=== PATIENT | female | born 1980 | race Caucasian/White ===

== ENCOUNTER 2017-10-08 13:52 | Emergency (ER) | payer MEDICAID ==
[~2017-10-08] VITALS: Ht 160 cm; Wt 52.0 kg
[~2017-10-08 13:52] MED LIST: CITA20TA11 PO; ELET40TA PO; EST1T PO; IBUP-1986 PO; ONDA4TAB6 PO; ONDA8TAB9 PO; OXYC-145 PO; PROM25TA14 PO; RIZA10TA27 PO; RIZA10TA28 PO; RIZA5TAB34 PO; ZOF4T PO
[2017-10-08 14:37] LABS: CLARITY,URINE Clear (Clear); COLOR,URINE Yellow (Yellow); GLUCOSE, URINE Negative (Neg); KETONES,URINE Negative (Neg); LEUKOCYTE ESTERASE ,URINE Negative (Neg); NITRITES, URINE Negative (Neg); OCCULT BLOOD,URINE Negative (Neg); PROTEIN,URINE Negative (Neg)
[2017-10-08 14:39] LABS: UA COLLECTION TYPE CLN CATCH MIDSTREAM
[2017-10-08 14:41] LABS: BASOPHILS % (AUTO) 0.2 % (0-1); EOSINOPHILS # (AUTO) 0.2 X10'3 (0-0.9); EOSINOPHILS % (AUTO) 2.1 % (0-6); HEMATOCRIT 35.3 % (35.0-45.0); HEMOGLOBIN 11.8 g/dl (12.0-16.0); LYMPHOCYTES # (AUTO) 1.4 X10'3 (1.1-4.8); LYMPHOCYTES % (AUTO) 12.3 % (21-51); MEAN CORPUSCULAR HEMOGLOBIN 30.6 PG (27.0-31.0); MEAN CORPUSCULAR HGB CONC 33.4 % (33.0-36.5); MEAN CORPUSCULAR VOLUME 91.6 FL (78-98); MEAN PLATELET VOLUME 6.7 FL (7.4-10.4); MONOCYTES # (AUTO) 0.7 X10'3 (0-0.9); MONOCYTES % (AUTO) 6.2 % (2-12); NEUTROPHILS # (AUTO) 8.8 X10'3 (1.8-7.7); NEUTROPHILS % (AUTO) 79.2 % (42-75); PLATELET COUNT 311 X10'3 (140-440); RED BLOOD COUNT 3.86 X10'6 (4.20-5.60); RED CELL DISTRIBUTION WIDTH 14.1 % (11.5-14.5); WHITE BLOOD COUNT 11.1 X10'3 (4.5-11.0)
[2017-10-08 15:06] LABS: ALANINE AMINOTRANSFERASE 26 U/L (12-78); ALBUMIN 3.7 G/DL (3.4-5.0); ALBUMIN/GLOBULIN RATIO 0.9 (1.1-1.5); ALKALINE PHOSPHATASE 74 IU/L (46-116); ANION GAP 6 (8-16); ASPARTATE AMINO TRANSFERASE 19 U/L (10-37); BILIRUBIN,TOTAL 0.4 MG/DL (0.1-1.0); BLOOD UREA NITROGEN 7 MG/DL (7-18); CHLORIDE 103 MMOL/L (99-107); GLUCOSE 101 MG/DL (70-104); LIPASE 119 U/L (73-393); POTASSIUM 3.5 MMOL/L (3.5-5.1); SODIUM 137 MMOL/L (135-145); TOTAL CARBON DIOXIDE 28.5 MMOL/L (24-32); TOTAL PROTEIN 7.6 G/DL (6.4-8.2); eGFR > 90 ML/MIN
[2017-10-08] MEDS ORDERED: dexamethasone sod phosphate 10mg/ml inj IV STA (15:21)
[2017-10-08] MEDS ORDERED: ondansetron/PF 4mg/2ml inj IV ONE (15:25)
[2017-10-08] MEDS ORDERED: ketorolac tromethamine 15mg/ml inj. IV ONE (15:25)
[2017-10-08] MEDS ORDERED: normal saline 1000ML IV soln IVB ONE (15:25)
[2017-10-08] MEDS ORDERED: CEPH-572 PO (15:25)
[2017-10-08] MEDS ORDERED: KETO10TA2 PO (15:38)
[2017-10-08 16:30] VITALS: BP 115/78
== END 2017-10-08 16:31 | disposition home or self-care (01) ==
LOC: ER 13:53
DX: G43.909 Migraine, unspecified, not intractable, without status migrainosus (principal); J45.909 Unspecified asthma, uncomplicated; G89.29 Other chronic pain; Z90.710 Acquired absence of both cervix and uterus; H66.92 Otitis media, unspecified, left ear; J02.9 Acute pharyngitis, unspecified; R10.84 Generalized abdominal pain; Z88.2 Allergy status to sulfonamides; Z88.0 Allergy status to penicillin; Z88.1 Allergy status to other antibiotic agents; Z91.040 Latex allergy status; Z88.6 Allergy status to analgesic agent; Z79.899 Other long term (current) drug therapy
CPT/HCPCS: 36415; 80053; 81003; 83690; 85025; 85610; 96361; 96374; 96375; 99284; J1100; J1885; J2405; J7030

== ENCOUNTER 2018-02-12 21:30 | Emergency (ER) | payer MEDICAID ==
[~2018-02-12] VITALS: Ht 160 cm; Wt 58.2 kg
[~2018-02-12 21:30] MED LIST changes: +CITA-278 PO; -CITA20TA11 PO; +KETO10TA2 PO
[2018-02-12] MEDS ORDERED: diphenhydrAMINE 50 mg/ml inj IV ONE (23:15)
[2018-02-12] MEDS ORDERED: metoclopramide 5 mg/ml inj IV ONE (23:15)
[2018-02-12] MEDS ORDERED: SUMAtriptan succ. 6 MG/0.5ml vial SQ ONE (23:15)
[2018-02-12] MEDS ORDERED: ketorolac trometh. 30mg/ml inj. IV ONE (23:15)
[2018-02-13] MEDS ORDERED: normal saline 1000ml 1,000 ML IV ONE (00:15)
[2018-02-13 01:12] VITALS: BP 127/85
== END 2018-02-13 01:13 | disposition home or self-care (01) ==
LOC: ER 21:31
DX: G43.909 Migraine, unspecified, not intractable, without status migrainosus (principal); J45.909 Unspecified asthma, uncomplicated; G89.29 Other chronic pain; Z86.14 Personal history of Methicillin resistant Staphylococcus aureus infection; Z88.5 Allergy status to narcotic agent; Z88.0 Allergy status to penicillin; Z88.8 Allergy status to other drugs, medicaments and biological substances; Z91.040 Latex allergy status; Z88.1 Allergy status to other antibiotic agents; Z88.2 Allergy status to sulfonamides; Z79.899 Other long term (current) drug therapy; Z90.710 Acquired absence of both cervix and uterus; Z98.890 Other specified postprocedural states
CPT/HCPCS: 96372; 96374; 96375; 99284; J1200; J1885; J2765; J3030; J7030

== ENCOUNTER 2018-02-15 16:56 | Emergency (ER) | payer MEDICAID ==
[~2018-02-15] VITALS: Ht 160 cm; Wt 59.0 kg
[2018-02-15 18:12] VITALS: BP 117/70
[2018-02-15] MEDS ORDERED: dexamethasone sod phosphate 10mg/ml inj IV STA (18:31)
[2018-02-15] MEDS ORDERED: LORazepam 2 mg/ml vial IV ONE (18:35)
[2018-02-15] MEDS ORDERED: ondansetron/PF 4mg/2ml inj IV ONE (18:35)
[2018-02-15] MEDS ORDERED: ketorolac trometh. 30mg/ml inj. IV ONE (19:20)
[2018-02-15] MEDS ORDERED: SUMAtriptan succ. 6 MG/0.5ml vial SQ ONE (19:20)
== END 2018-02-15 19:37 | disposition home or self-care (01) ==
LOC: ER 16:57
DX: G43.909 Migraine, unspecified, not intractable, without status migrainosus (principal); J45.909 Unspecified asthma, uncomplicated; G89.29 Other chronic pain; Z86.14 Personal history of Methicillin resistant Staphylococcus aureus infection; Z90.710 Acquired absence of both cervix and uterus; Z98.890 Other specified postprocedural states; Z88.0 Allergy status to penicillin; Z88.2 Allergy status to sulfonamides; Z88.5 Allergy status to narcotic agent; Z79.899 Other long term (current) drug therapy; Z91.040 Latex allergy status
CPT/HCPCS: 96372; 96374; 96375; 99284; J1100; J1885; J2060; J2405; J3030

== ENCOUNTER 2018-03-08 08:22 | Emergency (ER) | payer MEDICAID ==
[~2018-03-08] VITALS: Ht 160 cm; Wt 54.5 kg
[2018-03-08 08:31] VITALS: BP 104/75
[2018-03-08] MEDS ORDERED: diazepam 5mg tablet PO ONE (08:35)
[2018-03-08] MEDS ORDERED: ondansetron/PF 4mg/2ml inj IV ONE (08:35)
[2018-03-08] MEDS ORDERED: diphenhydrAMINE 50 mg/ml inj IV ONE (08:35)
[2018-03-08] MEDS ORDERED: ketorolac trometh. 30mg/ml inj. IV ONE (08:35)
[2018-03-08] MEDS ORDERED: LORazepam 2 mg/ml vial IV ONE (08:40)
[2018-03-08] MEDS ORDERED: ondansetron 4mg rapidly disintigrating tab PO ONE (09:15)
[2018-03-08 10:05] LABS: CLARITY,URINE CLOUDY (Clear); COLOR,URINE YELLOW (Yellow); GLUCOSE, URINE NEGATIVE (Neg); KETONES,URINE 15 mg/dl (Neg); LEUKOCYTE ESTERASE ,URINE NEGATIVE (Neg); NITRITES, URINE NEGATIVE (Neg); OCCULT BLOOD,URINE NEGATIVE (Neg); PH,URINE 6.5 (4.8-8.0); PROTEIN,URINE 30 mg/dl (Neg)
[2018-03-08 10:06] LABS: UA COLLECTION TYPE CLN CATCH MIDSTREAM
[2018-03-08 10:07] LABS: URINE HCG NEGATIVE (NEG)
[2018-03-08 10:11] LABS: CAL OXALATE CRYSTALS 1+ /HPF (NEGATIVE); MUCUS STRANDS MANY /LPF (Neg); SQUAMOUS EPITHELIAL CELL,UR MANY /LPF (FEW)
[2018-03-08 10:12] LABS: BACTERIA,URINE 1+ /HPF (Neg); RBC,URINE 0-2 /HPF (0-2); WBC,URINE 0-4 /HPF (0-4)
== END 2018-03-08 09:43 | disposition home or self-care (01) ==
LOC: ER 08:22
DX: G43.909 Migraine, unspecified, not intractable, without status migrainosus (principal); R10.30 Lower abdominal pain, unspecified; J45.909 Unspecified asthma, uncomplicated; G89.29 Other chronic pain; Z86.14 Personal history of Methicillin resistant Staphylococcus aureus infection; Z90.710 Acquired absence of both cervix and uterus; Z98.890 Other specified postprocedural states; Z88.5 Allergy status to narcotic agent; Z88.0 Allergy status to penicillin; Z88.1 Allergy status to other antibiotic agents; Z91.040 Latex allergy status; Z88.2 Allergy status to sulfonamides; Z88.8 Allergy status to other drugs, medicaments and biological substances; Z79.899 Other long term (current) drug therapy
CPT/HCPCS: 81001; 81025; 96374; 96375; 99284; A6258; J1200; J1885; J2060

== ENCOUNTER 2018-06-17 18:43 | Emergency (ER) | payer MEDICAID ==
[~2018-06-17] VITALS: Ht 160 cm; Wt 54.5 kg
[2018-06-17] MEDS ORDERED: ketorolac trometh. 30mg/ml inj. IV ONE (20:45)
[2018-06-17] MEDS ORDERED: diphenhydrAMINE 50 mg/ml inj IV ONE (20:45)
[2018-06-17] MEDS ORDERED: ondansetron/PF 4mg/2ml inj IV ONE (20:45)
[2018-06-17] MEDS ORDERED: diazepam 5mg tablet PO ONE (20:45)
[2018-06-17] MEDS ORDERED: LORazepam 2 mg/ml vial IV ONE ×2 (21:40→22:10)
[2018-06-17] MEDS ORDERED: valproate sod inj 500 MG in normal saline 100ml IV soln 95 ML IV ONE (22:10)
[2018-06-18 00:14] VITALS: BP 115/53
== END 2018-06-18 00:15 | disposition home or self-care (01) ==
LOC: ER 18:44
DX: G43.909 Migraine, unspecified, not intractable, without status migrainosus (principal); J45.909 Unspecified asthma, uncomplicated; G89.29 Other chronic pain; Z90.710 Acquired absence of both cervix and uterus; Z98.890 Other specified postprocedural states; Z88.3 Allergy status to other anti-infective agents; Z91.040 Latex allergy status; Z88.0 Allergy status to penicillin; Z88.2 Allergy status to sulfonamides; Z88.1 Allergy status to other antibiotic agents; Z88.5 Allergy status to narcotic agent; Z79.899 Other long term (current) drug therapy
CPT/HCPCS: 96365; 96375; 96376; 99284; J1200; J1885; J2060; J2405; J7030

== ENCOUNTER 2018-08-28 13:45 | Emergency (ER) | payer MEDICAID ==
[~2018-08-28] VITALS: Ht 160 cm; Wt 53.6 kg
[2018-08-28 13:52] VITALS: BP 134/91
[2018-08-28] MEDS ORDERED: CEPH500C5 PO (14:11)
[2018-08-28] MEDS ORDERED: TRAM50TA2 PO (14:11)
[2018-08-28] MEDS ORDERED: PHEN-716 PO (14:11)
[2018-08-28 14:14] LABS: CLARITY,URINE CLEAR (Clear); GLUCOSE, URINE NEGATIVE (Neg); KETONES,URINE NEGATIVE (Neg); LEUKOCYTE ESTERASE ,URINE MODERATE (Neg); NITRITES, URINE NEGATIVE (Neg); OCCULT BLOOD,URINE LARGE (Neg); PH,URINE 6.5 (4.8-8.0); PROTEIN,URINE NEGATIVE (Neg); UROBILINOGEN,URINE 0.2 E.U/dL (0.2-1.0)
[2018-08-28 14:24] LABS: COLOR,URINE PINK (Yellow); UA COLLECTION TYPE CLN CATCH MIDSTREAM
[2018-08-28 14:25] LABS: BACTERIA,URINE NONE SEEN /HPF (Neg); MUCUS STRANDS NONE SEEN /LPF (Neg); SQUAMOUS EPITHELIAL CELL,UR NONE SEEN /LPF (FEW)
[2018-08-28] MEDS ORDERED: ketorolac trometh inj. 60 MG/2 ML VIAL IM ONE (14:45)
== END 2018-08-28 14:56 | disposition home or self-care (01) ==
LOC: ER 13:46
DX: N39.0 Urinary tract infection, site not specified (principal); G43.909 Migraine, unspecified, not intractable, without status migrainosus; J45.909 Unspecified asthma, uncomplicated; G89.29 Other chronic pain; Z86.14 Personal history of Methicillin resistant Staphylococcus aureus infection; Z90.710 Acquired absence of both cervix and uterus; Z98.890 Other specified postprocedural states; Z88.1 Allergy status to other antibiotic agents; Z88.0 Allergy status to penicillin; Z91.040 Latex allergy status; Z88.2 Allergy status to sulfonamides; Z88.5 Allergy status to narcotic agent; Z88.8 Allergy status to other drugs, medicaments and biological substances; Z79.899 Other long term (current) drug therapy
CPT/HCPCS: 81001; 87088; 96372; 99283; J1885

== ENCOUNTER 2018-10-03 21:02 | Emergency (ER) | payer MEDICAID ==
[~2018-10-03] VITALS: Ht 160 cm; Wt 48.1 kg
[~2018-10-03 21:02] MED LIST changes: +CEPH500C5 PO; +PHEN-716 PO
[2018-10-03] MEDS ORDERED: LORazepam 2 mg/ml vial IV ONE (21:30)
[2018-10-03] MEDS ORDERED: ketorolac trometh. 30mg/ml inj. IV ONE ×2 (21:30→22:15)
[2018-10-03] MEDS ORDERED: ondansetron/PF 4mg/2ml inj IV ONE (21:30)
[2018-10-03] MEDS ORDERED: dexamethasone 4mg/ml inj IV SCH (21:30)
[2018-10-03] MEDS ORDERED: diphenhydrAMINE 50 mg/ml inj IV ONE (21:30)
[2018-10-03 22:23] VITALS: BP 108/76
== END 2018-10-03 22:25 | disposition home or self-care (01) ==
LOC: ER 21:03
DX: G43.909 Migraine, unspecified, not intractable, without status migrainosus (principal); J45.909 Unspecified asthma, uncomplicated; G89.29 Other chronic pain; Z86.14 Personal history of Methicillin resistant Staphylococcus aureus infection; Z90.710 Acquired absence of both cervix and uterus; Z98.890 Other specified postprocedural states; Z88.0 Allergy status to penicillin; Z88.1 Allergy status to other antibiotic agents; Z88.2 Allergy status to sulfonamides; Z88.8 Allergy status to other drugs, medicaments and biological substances; Z79.899 Other long term (current) drug therapy
CPT/HCPCS: 96374; 96375; 96376; 99283; J1100; J1200; J1885; J2060; J2405

== ENCOUNTER 2018-10-10 13:36 | Emergency (ER) | payer MEDICAID ==
[~2018-10-10] VITALS: Ht 160 cm; Wt 52.4 kg
[2018-10-10] MEDS ORDERED: dexamethasone sod phosphate 10mg/ml inj IM STA (14:09)
[2018-10-10] MEDS ORDERED: ondansetron 4mg rapidly disintigrating tab PO ONE (14:10)
[2018-10-10] MEDS ORDERED: diphenhydrAMINE 50 mg/ml inj IM ONE (14:10)
[2018-10-10 15:04] VITALS: BP 132/52
[2018-10-10] MEDS ORDERED: LORazepam 1 MG tablet PO ONE (15:05)
[2018-10-10] MEDS ORDERED: SUMAtriptan succ. 6 MG/0.5ml vial SQ ONE (15:05)
[2018-10-10] MEDS ORDERED: LORazepam 0.5 MG tablet PO ONE (15:15)
== END 2018-10-10 15:31 | disposition home or self-care (01) ==
LOC: ER 13:36
DX: G43.909 Migraine, unspecified, not intractable, without status migrainosus (principal); H53.149 Visual discomfort, unspecified; J45.909 Unspecified asthma, uncomplicated; G89.29 Other chronic pain; Z90.710 Acquired absence of both cervix and uterus; Z98.890 Other specified postprocedural states; Z88.3 Allergy status to other anti-infective agents; Z91.040 Latex allergy status; Z88.1 Allergy status to other antibiotic agents; Z88.5 Allergy status to narcotic agent; Z79.899 Other long term (current) drug therapy
CPT/HCPCS: 96372; 99283; J1100; J1200; J3030

== ENCOUNTER 2018-10-19 20:43 | Emergency (ER) | payer MEDICAID ==
[~2018-10-19] VITALS: Ht 160 cm; Wt 52.0 kg
[2018-10-19 20:53] VITALS: BP 115/77
[2018-10-19] MEDS ORDERED: normal saline 1000ml 1,000 ML IV ONE (21:25)
[2018-10-19] MEDS ORDERED: metoclopramide 5 mg/ml inj IV ONE (21:25)
[2018-10-19] MEDS ORDERED: diphenhydrAMINE 50 mg/ml inj IV ONE (21:25)
[2018-10-19] MEDS ORDERED: ketorolac tromethamine 15mg/ml inj. IV ONE (21:25)
[2018-10-19] MEDS ORDERED: RIZA10TA27 PO (21:34)
[2018-10-19] MEDS ORDERED: SUMA6PEN SQ (21:34)
[2018-10-19] MEDS ORDERED: ONDA4TAB6 PO (21:34)
== END 2018-10-19 22:02 | disposition home or self-care (01) ==
LOC: ER 20:44
DX: G43.909 Migraine, unspecified, not intractable, without status migrainosus (principal); J45.909 Unspecified asthma, uncomplicated; G89.29 Other chronic pain; Z86.14 Personal history of Methicillin resistant Staphylococcus aureus infection; Z90.710 Acquired absence of both cervix and uterus; Z98.890 Other specified postprocedural states; Z88.5 Allergy status to narcotic agent; Z88.0 Allergy status to penicillin; Z88.2 Allergy status to sulfonamides; Z88.8 Allergy status to other drugs, medicaments and biological substances; Z88.1 Allergy status to other antibiotic agents; Z91.040 Latex allergy status; Z79.899 Other long term (current) drug therapy
CPT/HCPCS: 96374; 96375; 99283; J1200; J1885; J2765; J7030

== ENCOUNTER → 2018-10-27 | Emergency (ER) | payer MEDICAID ==
[~2018-10-27] VITALS: Ht 160 cm; Wt 46.0 kg
[~2018-10-27] MED LIST changes: +PHE12.5T PO; +SUMA6PEN SQ; +ketorolac trometh. 30mg/ml inj. IV ONE; +ondansetron/PF 4mg/2ml inj IV ONE
[2018-10-27 19:00] LABS: BASOPHILS % (AUTO) 0.3 % (0-1); EOSINOPHILS % (AUTO) 0.8 % (0-6); HEMATOCRIT 43.2 % (35.0-45.0); HEMOGLOBIN 14.6 g/dl (12.0-16.0); LYMPHOCYTES # (AUTO) 0.7 X10'3 (1.1-4.8); LYMPHOCYTES % (AUTO) 17.7 % (21-51); MEAN CORPUSCULAR HEMOGLOBIN 31.5 PG (27.0-31.0); MEAN CORPUSCULAR HGB CONC 33.8 g/dL (33.0-36.5); MEAN CORPUSCULAR VOLUME 93.1 FL (78-98); MEAN PLATELET VOLUME 7.6 FL (7.4-10.4); MONOCYTES # (AUTO) 0.4 X10'3 (0-0.9); MONOCYTES % (AUTO) 10.6 % (2-12); NEUTROPHILS # (AUTO) 2.8 X10'3 (1.8-7.7); NEUTROPHILS % (AUTO) 70.6 % (42-75); PLATELET COUNT 279 X10'3 (140-440); RED BLOOD COUNT 4.64 X10'6 (4.20-5.60); RED CELL DISTRIBUTION WIDTH 14.3 % (11.5-14.5)
[2018-10-27 19:08] LABS: CLARITY,URINE CLEAR (Clear); COLOR,URINE YELLOW (Yellow); GLUCOSE, URINE NEGATIVE (Neg); KETONES,URINE NEGATIVE (Neg); LEUKOCYTE ESTERASE ,URINE NEGATIVE (Neg); NITRITES, URINE NEGATIVE (Neg); OCCULT BLOOD,URINE NEGATIVE (Neg); PH,URINE 5.5 (4.8-8.0); PROTEIN,URINE TRACE mg/dl (Neg)
[2018-10-27 19:11] LABS: URINE HCG NEGATIVE (NEG)
[2018-10-27 19:12] LABS: UA COLLECTION TYPE CLN CATCH MIDSTREAM
[2018-10-27 19:15] LABS: ALANINE AMINOTRANSFERASE 25 U/L (12-78); ALBUMIN 3.9 G/DL (3.4-5.0); ALKALINE PHOSPHATASE 64 IU/L (46-116); ANION GAP 12 (8-16); ASPARTATE AMINO TRANSFERASE 23 U/L (10-37); BILIRUBIN,TOTAL 0.2 MG/DL (0.1-1.0); BLOOD UREA NITROGEN 17 MG/DL (7-18); BUN/CREATININE RATIO 12.6 (6.6-38.0); CALCIUM 8.7 MG/DL (8.5-10.1); CHLORIDE 96 MMOL/L (99-107); CREATININE 1.35 MG/DL (0.40-0.90); GLUCOSE 92 MG/DL (70-104); POTASSIUM 3.6 MMOL/L (3.5-5.1); SODIUM 138 MMOL/L (135-145); TOTAL CARBON DIOXIDE 30.1 MMOL/L (24-32); eGFR 44 ML/MIN
[2018-10-27 19:26] LABS: MUCUS STRANDS MANY /LPF (Neg); SQUAMOUS EPITHELIAL CELL,UR MANY /LPF (FEW)
[2018-10-27 19:27] LABS: BACTERIA,URINE FEW /HPF (Neg); HYALINE CASTS 0-3 /LPF (NEGATIVE); RBC,URINE 0-2 /HPF (0-2); WBC,URINE 0-4 /HPF (0-4)
[2018-10-27 21:17] VITALS: BP 108/66
== END | disposition home or self-care (01) ==
LOC: ER 18:22
DX: E86.0 Dehydration (principal); R11.2 Nausea with vomiting, unspecified; J11.1 Influenza due to unidentified influenza virus with other respiratory manifestations; G43.909 Migraine, unspecified, not intractable, without status migrainosus; J45.909 Unspecified asthma, uncomplicated; G89.29 Other chronic pain; Z98.890 Other specified postprocedural states; Z90.710 Acquired absence of both cervix and uterus; Z86.14 Personal history of Methicillin resistant Staphylococcus aureus infection; Z88.3 Allergy status to other anti-infective agents; Z91.040 Latex allergy status; Z88.0 Allergy status to penicillin; Z88.2 Allergy status to sulfonamides; Z88.1 Allergy status to other antibiotic agents; Z88.5 Allergy status to narcotic agent
CPT/HCPCS: 36415; 71045; 80053; 81001; 81025; 85025; 85610; 96374; 96375; 99284; J1885; J2405

== ENCOUNTER 2018-11-15 19:38 | Emergency (ER) | payer MEDICAID ==
[~2018-11-15] VITALS: Ht 160 cm; Wt 45.5 kg
[~2018-11-15 19:38] MED LIST changes: -ketorolac trometh. 30mg/ml inj. IV ONE; -ondansetron/PF 4mg/2ml inj IV ONE
[2018-11-15 20:24] LABS: BASOPHILS # (AUTO) 0.1 X10'3 (0-0.2); BASOPHILS % (AUTO) 0.7 % (0-1); EOSINOPHILS % (AUTO) 0.2 % (0-6); HEMATOCRIT 35.3 % (35.0-45.0); HEMOGLOBIN 11.6 g/dl (12.0-16.0); LYMPHOCYTES # (AUTO) 1.6 X10'3 (1.1-4.8); MEAN CORPUSCULAR HEMOGLOBIN 30.6 PG (27.0-31.0); MEAN CORPUSCULAR HGB CONC 32.9 g/dL (33.0-36.5); MEAN PLATELET VOLUME 6.8 FL (7.4-10.4); MONOCYTES # (AUTO) 0.6 X10'3 (0-0.9); MONOCYTES % (AUTO) 5.5 % (2-12); NEUTROPHILS # (AUTO) 9.2 X10'3 (1.8-7.7); NEUTROPHILS % (AUTO) 79.6 % (42-75); PLATELET COUNT 412 X10'3 (140-440); RED CELL DISTRIBUTION WIDTH 14.4 % (11.5-14.5); WHITE BLOOD COUNT 11.6 X10'3 (4.5-11.0)
[2018-11-15 20:36] LABS: ALANINE AMINOTRANSFERASE 14 U/L (12-78); ALBUMIN 3.9 G/DL (3.4-5.0); ALKALINE PHOSPHATASE 74 IU/L (46-116); ANION GAP 12 (8-16); ASPARTATE AMINO TRANSFERASE 15 U/L (10-37); BILIRUBIN,TOTAL 0.6 MG/DL (0.1-1.0); BLOOD UREA NITROGEN 14 MG/DL (7-18); BUN/CREATININE RATIO 17.9 (6.6-38.0); CALCIUM 9.4 MG/DL (8.5-10.1); CHLORIDE 102 MMOL/L (99-107); CREATININE 0.78 MG/DL (0.40-0.90); GLUCOSE 101 MG/DL (70-104); POTASSIUM 3.4 MMOL/L (3.5-5.1); SODIUM 139 MMOL/L (135-145); TOTAL PROTEIN 7.7 G/DL (6.4-8.2); eGFR 82 ML/MIN
--- NOTE | 2018-11-15 21:25 | NUR ---
After speaking with patient, she states the reason for her visit is 1) "to make sure this is still just the flu", and 2) "medication refill" (valium for anxiety as she has run out and has been discharged from her clinic for 'no shows')
[2018-11-15] MEDS ORDERED: predniSONE 20 mg tablet PO ONE (21:35)
[2018-11-15] MEDS ORDERED: diazepam 5mg tablet PO ONE (21:35)
[2018-11-15] MEDS ORDERED: ipratropium/albuterol 3ml nebule NEB ONE (21:35)
--- NOTE | 2018-11-15 21:37 | NUR ---
RT on unit, informed of ordered SVN
[2018-11-15 22:10] VITALS: BP 136/83
[2018-11-15] MEDS ORDERED: METH4TAB3 PO (22:10)
[2018-11-15] MEDS ORDERED: DIAZ5TAB PO (22:10)
[2018-11-15] MEDS ORDERED: LEVA15HF4 INH (22:16)
== END 2018-11-15 22:20 | disposition home or self-care (01) ==
LOC: ER 19:38
DX: J04.0 Acute laryngitis (principal); J06.9 Acute upper respiratory infection, unspecified; J45.909 Unspecified asthma, uncomplicated; G43.909 Migraine, unspecified, not intractable, without status migrainosus; F41.9 Anxiety disorder, unspecified; Z90.710 Acquired absence of both cervix and uterus; Z98.890 Other specified postprocedural states; Z88.0 Allergy status to penicillin; Z88.1 Allergy status to other antibiotic agents; Z88.8 Allergy status to other drugs, medicaments and biological substances
CPT/HCPCS: 36415; 71046; 80053; 85025; 87502; 87503; 93005; 94640; 94760; 99284; J7512

== ENCOUNTER → 2019-01-16 | Emergency (ER) | payer MEDICAID ==
[~2019-01-16] VITALS: Ht 160 cm; Wt 54.8 kg
[~2019-01-16] MED LIST changes: +CETI10TA18 PO; -CITA-278 PO; +CITA20TA28 PO; +DIAZ5TAB PO; +LEVA15HF4 INH; +LIDOcaine 4% (40 mg/ml) topical solution 50ml MM ONE; +LORazepam 2 mg/ml vial IV ONE; +METH4TAB3 PO; +SUMAtriptan succ. 6 MG/0.5ml vial SQ ONE; +diphenhydrAMINE 50 mg/ml inj IV ONE; +ketorolac tromethamine 15mg/ml inj. IV ONE; +lidocaine 2% viscous 15 ML cup ***bronch room only MM ONE; +normal saline 1000ML IV soln IVB ONE; +ondansetron/PF 4mg/2ml inj IV ONE
[2019-01-16 19:53] VITALS: BP 106/67
== END | disposition home or self-care (01) ==
LOC: ER 19:35
DX: G43.909 Migraine, unspecified, not intractable, without status migrainosus (principal); R06.02 Shortness of breath; J45.909 Unspecified asthma, uncomplicated; G89.29 Other chronic pain; Z86.14 Personal history of Methicillin resistant Staphylococcus aureus infection; Z90.710 Acquired absence of both cervix and uterus; Z98.890 Other specified postprocedural states; Z88.1 Allergy status to other antibiotic agents; Z88.0 Allergy status to penicillin; Z88.2 Allergy status to sulfonamides; Z88.5 Allergy status to narcotic agent; Z91.040 Latex allergy status; Z88.8 Allergy status to other drugs, medicaments and biological substances; Z79.899 Other long term (current) drug therapy
CPT/HCPCS: 96372; 96374; 96375; 96376; 99283; J1200; J1885; J2060; J2405; J7030; J3030

== ENCOUNTER 2019-01-17 21:06 | Emergency (ER) | payer MEDICAID ==
[~2019-01-17] VITALS: Ht 160 cm; Wt 53.1 kg
[~2019-01-17 21:06] MED LIST changes: -CETI10TA18 PO; -LIDOcaine 4% (40 mg/ml) topical solution 50ml MM ONE; -LORazepam 2 mg/ml vial IV ONE; -SUMAtriptan succ. 6 MG/0.5ml vial SQ ONE; -diphenhydrAMINE 50 mg/ml inj IV ONE; -ketorolac tromethamine 15mg/ml inj. IV ONE; -lidocaine 2% viscous 15 ML cup ***bronch room only MM ONE; -normal saline 1000ML IV soln IVB ONE; -ondansetron/PF 4mg/2ml inj IV ONE
[2019-01-18] MEDS ORDERED: SUMAtriptan succ. 6 MG/0.5ml vial SQ ONE (00:20)
[2019-01-18] MEDS ORDERED: LORazepam 2 mg/ml vial IV ONE (00:20)
[2019-01-18] MEDS ORDERED: ondansetron 4mg rapidly disintigrating tab PO ONE (00:20)
[2019-01-18] MEDS ORDERED: ketorolac tromethamine 15mg/ml inj. IV ONE (00:20)
[2019-01-18] MEDS ORDERED: normal saline 1000ML IV soln IVB ONE (00:20)
[2019-01-18 00:56] VITALS: BP 125/80
[2019-01-18] MEDS ORDERED: CETI10TA18 PO (02:25)
[2019-01-18] MEDS ORDERED: LEVA15HF4 INH (02:25)
== END 2019-01-18 03:01 | disposition home or self-care (01) ==
LOC: ER 21:06
DX: G43.909 Migraine, unspecified, not intractable, without status migrainosus (principal); J45.909 Unspecified asthma, uncomplicated; G89.29 Other chronic pain; Z79.2 Long term (current) use of antibiotics; Z79.1 Long term (current) use of non-steroidal anti-inflammatories (NSAID); Z79.899 Other long term (current) drug therapy; Z88.0 Allergy status to penicillin; Z88.1 Allergy status to other antibiotic agents; Z88.8 Allergy status to other drugs, medicaments and biological substances; Z88.6 Allergy status to analgesic agent; Z86.14 Personal history of Methicillin resistant Staphylococcus aureus infection; Z87.440 Personal history of urinary (tract) infections; Z91.040 Latex allergy status; Z98.890 Other specified postprocedural states; Z90.710 Acquired absence of both cervix and uterus
CPT/HCPCS: 96372; 96374; 96375; 99283; J1885; J2060; J7030; J3030

== ENCOUNTER 2019-03-15 22:38 | Emergency (ER) | payer MEDICAID ==
[~2019-03-15] VITALS: Ht 160 cm; Wt 5.3 kg
[~2019-03-15 22:38] MED LIST changes: +CETI10TA18 PO; -PHE12.5T PO; +PROM12.512 PO
[2019-03-15 22:39] VITALS: BP 106/70
[2019-03-15 23:40] LABS: URINE HCG NEGATIVE (NEG)
[2019-03-15 23:41] LABS: CLARITY,URINE CLOUDY (Clear); COLOR,URINE YELLOW (Yellow); GLUCOSE, URINE NEGATIVE (Neg); KETONES,URINE TRACE mg/dl (Neg); LEUKOCYTE ESTERASE ,URINE TRACE (Neg); NITRITES, URINE POSITIVE (Neg); OCCULT BLOOD,URINE NEGATIVE (Neg); PH,URINE 5.5 (4.8-8.0); PROTEIN,URINE TRACE mg/dl (Neg)
[2019-03-15 23:42] LABS: UA COLLECTION TYPE CLN CATCH MIDSTREAM
[2019-03-15 23:50] LABS: BACTERIA,URINE 3+ /HPF (Neg); RBC,URINE NONE SEEN /HPF (0-2); WBC,URINE 20-30 /HPF (0-4)
[2019-03-15 23:51] LABS: MUCUS STRANDS MODERATE /LPF (Neg); SQUAMOUS EPITHELIAL CELL,UR MODERATE /LPF (FEW)
[2019-03-15] MEDS ORDERED: PHEN-716 PO (23:54)
[2019-03-15] MEDS ORDERED: CIPR-259 PO (23:54)
[2019-03-15] MEDS ORDERED: phenazopyridine 100mg tablet PO ONE (23:55)
[2019-03-15] MEDS ORDERED: ciprofloxacin 250mg tablet PO ONE (23:55)
== END 2019-03-16 00:20 | disposition home or self-care (01) ==
LOC: ER 22:38
DX: N39.0 Urinary tract infection, site not specified (principal); G43.909 Migraine, unspecified, not intractable, without status migrainosus; J45.909 Unspecified asthma, uncomplicated; G89.29 Other chronic pain; Z88.0 Allergy status to penicillin; Z88.2 Allergy status to sulfonamides; Z88.5 Allergy status to narcotic agent; Z88.6 Allergy status to analgesic agent; Z88.8 Allergy status to other drugs, medicaments and biological substances; Z79.2 Long term (current) use of antibiotics; Z79.899 Other long term (current) drug therapy; Z86.14 Personal history of Methicillin resistant Staphylococcus aureus infection; Z90.710 Acquired absence of both cervix and uterus; Z98.890 Other specified postprocedural states
CPT/HCPCS: 81001; 81025; 87088; 87186; 99283

== ENCOUNTER 2019-04-03 17:40 | Emergency (ER) | payer MEDICAID ==
[~2019-04-03] VITALS: Ht 160 cm; Wt 50.0 kg
[2019-04-03 18:17] VITALS: BP 103/67
[2019-04-03] MEDS ORDERED: ketorolac tromethamine 15mg/ml inj. IM ONE (20:05)
== END 2019-04-03 20:20 | disposition home or self-care (01) ==
LOC: ER 17:41
DX: M25.531 Pain in right wrist (principal); M54.10 Radiculopathy, site unspecified; G43.909 Migraine, unspecified, not intractable, without status migrainosus; J45.909 Unspecified asthma, uncomplicated; G89.29 Other chronic pain; Z86.14 Personal history of Methicillin resistant Staphylococcus aureus infection; Z90.710 Acquired absence of both cervix and uterus; Z98.890 Other specified postprocedural states; Z88.5 Allergy status to narcotic agent; Z88.2 Allergy status to sulfonamides; Z88.8 Allergy status to other drugs, medicaments and biological substances; Z88.1 Allergy status to other antibiotic agents; Z91.040 Latex allergy status; Z79.899 Other long term (current) drug therapy
CPT/HCPCS: 29125; 73110; 96372; 99283; J1885

== ENCOUNTER 2019-04-26 21:07 | Emergency (ER) | payer MEDICAID ==
[~2019-04-26] VITALS: Ht 160 cm; Wt 51.0 kg
[2019-04-26 21:15] VITALS: BP 112/73
[2019-04-26] MEDS ORDERED: normal saline 1000ml 1,000 ML IV ONE (21:45)
[2019-04-26] MEDS ORDERED: diphenhydrAMINE 50 mg/ml inj IV ONE (21:45)
[2019-04-26] MEDS ORDERED: diazepam inj 5 MG/ML inj. IV ONE (21:45)
[2019-04-26] MEDS ORDERED: ketorolac tromethamine 15mg/ml inj. IV ONE (21:45)
[2019-04-26] MEDS ORDERED: metoclopramide 5 mg/ml inj IV ONE (21:45)
== END 2019-04-26 23:10 | disposition home or self-care (01) ==
LOC: ER 21:08
DX: G43.909 Migraine, unspecified, not intractable, without status migrainosus (principal); J45.909 Unspecified asthma, uncomplicated; G89.29 Other chronic pain; Z86.14 Personal history of Methicillin resistant Staphylococcus aureus infection; Z90.710 Acquired absence of both cervix and uterus; Z98.890 Other specified postprocedural states; Z88.8 Allergy status to other drugs, medicaments and biological substances; Z91.040 Latex allergy status; Z88.0 Allergy status to penicillin; Z88.2 Allergy status to sulfonamides; Z88.1 Allergy status to other antibiotic agents; Z88.5 Allergy status to narcotic agent; Z79.2 Long term (current) use of antibiotics
CPT/HCPCS: 96374; 96375; 99283; J1200; J1885; J2765; J3360; J7030

== ENCOUNTER 2019-08-13 21:10 | Emergency (ER) | payer MEDICAID ==
[~2019-08-13] VITALS: Ht 160 cm; Wt 52.2 kg
--- NOTE | 2019-08-13 21:30 | NUR ---
Spoke to Dr. Gary regarding patient's condition and symptoms and possibility of EKG. He states EKG not needed at this time.
[2019-08-13] MEDS ORDERED: ondansetron 4mg rapidly disintigrating tab PO ONE (22:10)
[2019-08-13] MEDS ORDERED: ketorolac trometh. 30mg/ml inj. IM ONE (22:10)
[2019-08-13] MEDS ORDERED: meclizine 12.5mg tablet PO ONE (22:10)
[2019-08-13] MEDS ORDERED: MECL-111 PO (22:35)
[2019-08-13 22:44] VITALS: BP 106/73
[2019-08-13] MEDS ORDERED: KETO10TA2 PO (22:49)
== END 2019-08-13 22:51 | disposition home or self-care (01) ==
LOC: ER 21:10
DX: S00.90XA Unspecified superficial injury of unspecified part of head, initial encounter (principal); R42 Dizziness and giddiness; R55 Syncope and collapse; G43.909 Migraine, unspecified, not intractable, without status migrainosus; J45.909 Unspecified asthma, uncomplicated; Z87.440 Personal history of urinary (tract) infections; G89.29 Other chronic pain; Z79.899 Other long term (current) drug therapy; Z91.040 Latex allergy status; Z88.0 Allergy status to penicillin; Z88.1 Allergy status to other antibiotic agents; Z88.6 Allergy status to analgesic agent; Z88.8 Allergy status to other drugs, medicaments and biological substances; Z79.2 Long term (current) use of antibiotics; Z79.1 Long term (current) use of non-steroidal anti-inflammatories (NSAID); Z86.14 Personal history of Methicillin resistant Staphylococcus aureus infection; Z90.710 Acquired absence of both cervix and uterus; Z98.890 Other specified postprocedural states; W18.39XA Other fall on same level, initial encounter; Y93.89 Activity, other specified; Y92.89 Other specified places as the place of occurrence of the external cause; Y99.8 Other external cause status
CPT/HCPCS: 93005; 96372; 99283; J1885; J8597

== ENCOUNTER 2019-10-19 18:23 | Emergency (ER) | payer MEDICAID ==
[~2019-10-19] VITALS: Ht 160 cm; Wt 52.1 kg
[~2019-10-19 18:23] MED LIST changes: -CEPH500C5 PO; +MECL-159 PO
[2019-10-19 19:03] VITALS: BP 110/67
[2019-10-19] MEDS ORDERED: ketorolac tromethamine 15mg/ml inj. IV ONE (21:15)
[2019-10-19] MEDS ORDERED: diphenhydrAMINE 50 mg/ml inj IV ONE (21:15)
[2019-10-19] MEDS ORDERED: metoclopramide 5 mg/ml inj IV ONE (21:15)
[2019-10-19] MEDS ORDERED: diazepam inj 5 MG/ML inj. IV ONE (21:15)
[2019-10-19] MEDS ORDERED: normal saline 1000ml 1,000 ML IV ONE (21:15)
[2019-10-19 21:39] LABS: CLARITY,URINE CLEAR (Clear); COLOR,URINE YELLOW (Yellow); GLUCOSE, URINE NEGATIVE (Neg); KETONES,URINE NEGATIVE (Neg); LEUKOCYTE ESTERASE ,URINE NEGATIVE (Neg); NITRITES, URINE NEGATIVE (Neg); OCCULT BLOOD,URINE NEGATIVE (Neg); PH,URINE 6.5 (4.8-8.0); PROTEIN,URINE NEGATIVE (Neg); UROBILINOGEN,URINE 0.2 E.U/dL (0.2-1.0)
[2019-10-19 22:02] LABS: UA COLLECTION TYPE CLN CATCH MIDSTREAM
== END 2019-10-19 22:24 | disposition home or self-care (01) ==
LOC: ER 18:24
DX: G43.909 Migraine, unspecified, not intractable, without status migrainosus (principal); R11.2 Nausea with vomiting, unspecified; J45.909 Unspecified asthma, uncomplicated; G89.29 Other chronic pain; Z86.14 Personal history of Methicillin resistant Staphylococcus aureus infection; Z90.710 Acquired absence of both cervix and uterus; Z98.890 Other specified postprocedural states; Z88.1 Allergy status to other antibiotic agents; Z88.2 Allergy status to sulfonamides; Z88.0 Allergy status to penicillin; Z91.040 Latex allergy status; Z88.5 Allergy status to narcotic agent; Z88.8 Allergy status to other drugs, medicaments and biological substances; Z79.899 Other long term (current) drug therapy
CPT/HCPCS: 81003; 96361; 96374; 96375; 99283; J1200; J1885; J2765; J3360; J7030

== ENCOUNTER 2019-12-15 10:50 | Outpatient (CLI) | payer MEDICAID ==
[2019-12-15 13:09] LABS: BASOPHILS # (AUTO) 0.1 X10'3 (0-0.2); BASOPHILS % (AUTO) 1.1 % (0-1); EOSINOPHILS # (AUTO) 0.1 X10'3 (0-0.9); EOSINOPHILS % (AUTO) 2.2 % (0-6); LYMPHOCYTES # (AUTO) 1.5 X10'3 (1.1-4.8); LYMPHOCYTES % (AUTO) 23.3 % (21-51); MEAN CORPUSCULAR HEMOGLOBIN 31.3 PG (27.0-31.0); MEAN CORPUSCULAR HGB CONC 33.6 g/dL (33.0-36.5); MEAN PLATELET VOLUME 7.1 FL (7.4-10.4); MONOCYTES # (AUTO) 0.4 X10'3 (0-0.9); MONOCYTES % (AUTO) 5.8 % (2-12); NEUTROPHILS # (AUTO) 4.4 X10'3 (1.8-7.7); NEUTROPHILS % (AUTO) 67.6 % (42-75); PRE OP HEMATOCRIT 35.4 % (35.0-45.0); PRE OP HEMOGLOBIN 11.9 g/dL (12.0-16.0); PRE OP PLATELET COUNT 378 X10'3 (140-440); RED BLOOD COUNT 3.81 X10'6 (4.20-5.60); RED CELL DISTRIBUTION WIDTH 13.2 % (11.5-14.5)
[2019-12-15 13:24] LABS: ALBUMIN 3.8 G/DL (3.4-5.0); ALBUMIN/GLOBULIN RATIO 1.1 (1.1-1.5); ALKALINE PHOSPHATASE 59 IU/L (46-116); BLOOD UREA NITROGEN 13 MG/DL (7-18); BUN/CREATININE RATIO 18.3 (6.6-38.0); CALCIUM 8.9 MG/DL (8.5-10.1); CHLORIDE 106 MMOL/L (99-107); CREATININE 0.71 MG/DL (0.40-0.90); PRE OP ALT 14 U/L (30-65); PRE OP ANION GAP 6 (8-16); PRE OP AST 14 U/L (10-37); PRE OP BILIRUB, TOTAL 0.2 MG/DL (0.0-1.0); PRE OP GLUCOSE 89 MG/DL (70-104); PRE OP POTASSIUM 3.9 MMOL/L (3.4-5.1); PRE OP SODIUM 140 MMOL/L (135-145); TOTAL CARBON DIOXIDE 27.6 MMOL/L (24-32); TOTAL PROTEIN 7.2 G/DL (6.4-8.2); eGFR > 90 ML/MIN
[2019-12-15] MEDS ORDERED: BUSP5TAB3 PO (14:02)
[2019-12-15] MEDS ORDERED: VAL5T PO (14:02)
[2019-12-15] MEDS ORDERED: DEXT30TA10 PO (14:02)
[2019-12-15] MEDS ORDERED: MELO-100 PO (14:02)
[2019-12-15] MEDS ORDERED: LITH150C8 PO (14:02)
[2019-12-15] MEDS ORDERED: TRAM50TA2 PO (14:02)
[2019-12-15] MEDS ORDERED: TIZA2TAB5 PO (14:02)
[2019-12-15] MEDS ORDERED: SUMA50TA INJ (14:02)
[2019-12-15] MEDS ORDERED: RIZA10TA27 PO (14:02)
[2019-12-15] MEDS ORDERED: CETI10TA18 PO (14:02)
[2019-12-15] MEDS ORDERED: AMPH10TA PO (14:02)
[2019-12-15] MEDS ORDERED: MECL-184 PO (14:02)
[2019-12-15] MEDS ORDERED: EST1T PO (14:02)
== END 2019-12-15 23:59 | disposition home or self-care (01) ==
LOC: PRE-OP 10:50 → EDSTATUS 12-22 09:15
PROVIDERS: ATTEND Orthopaedic Surgery Hand Surgery
DX: Z01.818 Encounter for other preprocedural examination (principal); G56.01 Carpal tunnel syndrome, right upper limb; M67.431 Ganglion, right wrist; M79.601 Pain in right arm; M65.4 Radial styloid tenosynovitis [de Quervain]; M25.531 Pain in right wrist; Z88.5 Allergy status to narcotic agent; Z88.0 Allergy status to penicillin; Z88.2 Allergy status to sulfonamides; Z88.8 Allergy status to other drugs, medicaments and biological substances; Z91.040 Latex allergy status
CPT/HCPCS: 36415; 80053; 85025

== ENCOUNTER 2020-02-09 07:13 | Emergency (ER) | payer MEDICAID ==
[~2020-02-09] VITALS: Ht 160 cm; Wt 52.7 kg
[~2020-02-09 07:13] MED LIST changes: +AMPH10TA PO; +BUSP5TAB3 PO; -CITA20TA28 PO; +DEXT30TA10 PO; -DIAZ5TAB PO; -ELET40TA PO; -IBUP-1986 PO; -KETO10TA2 PO; -LEVA15HF4 INH; +LITH150C8 PO; -MECL-159 PO; +MECL-184 PO; +MELO-100 PO; -METH4TAB3 PO; -ONDA4TAB6 PO; -ONDA8TAB9 PO; -OXYC-145 PO; -PHEN-716 PO; -PROM12.512 PO; -PROM25TA14 PO; -RIZA10TA28 PO; -RIZA5TAB34 PO; +SUMA50TA INJ; -SUMA6PEN SQ; +TIZA2TAB7 PO; +TRAM50TA2 PO; +VAL5T PO; -ZOF4T PO
[2020-02-09] MEDS ORDERED: diphenhydrAMINE 50 mg/ml inj IV ONE (08:00)
[2020-02-09] MEDS ORDERED: ondansetron/PF 4mg/2ml inj IV ONE (08:35)
[2020-02-09] MEDS ORDERED: ketorolac trometh. 30mg/ml inj. IV ONE (08:35)
[2020-02-09] MEDS ORDERED: valproate sod inj 500 MG in normal saline 100ml IV soln 95 ML IV ONE (08:35)
[2020-02-09 09:09] VITALS: BP 127/79
== END 2020-02-09 10:24 | disposition home or self-care (01) ==
LOC: ER 07:14
DX: G43.909 Migraine, unspecified, not intractable, without status migrainosus (principal); R11.0 Nausea; J45.909 Unspecified asthma, uncomplicated; G89.29 Other chronic pain; Z86.14 Personal history of Methicillin resistant Staphylococcus aureus infection; Z90.710 Acquired absence of both cervix and uterus; Z98.890 Other specified postprocedural states; Z88.1 Allergy status to other antibiotic agents; Z88.0 Allergy status to penicillin; Z88.2 Allergy status to sulfonamides; Z88.5 Allergy status to narcotic agent; Z88.8 Allergy status to other drugs, medicaments and biological substances; Z79.899 Other long term (current) drug therapy
CPT/HCPCS: 96365; 96375; 99284; J1200; J1885; J2405

== ENCOUNTER 2020-02-20 18:59 | Emergency (ER) | payer MEDICAID ==
[~2020-02-20] VITALS: Ht 160 cm; Wt 116.0 kg
[~2020-02-20 18:59] MED LIST changes: -TRAM50TA2 PO
[2020-02-20] MEDS ORDERED: normal saline 1000ML IV soln IVB ONE (19:25)
[2020-02-20] MEDS ORDERED: ketorolac trometh. 30mg/ml inj. IV ONE (19:25)
[2020-02-20] MEDS ORDERED: LORazepam 2 mg/ml vial IV ONE (19:25)
[2020-02-20] MEDS ORDERED: diphenhydrAMINE 50 mg/ml inj IV ONE (19:25)
--- NOTE | 2020-02-20 20:29 | NUR ---
DR. AMBROSE UPDATED THAT PT REQUESTS "WHATEVER I WAS GIVEN LAST TIME" WHICH WAS DEPAKOTE IV , AND THAT SHE IS NAUSEAUS. HE WILL ORDER THE DEPAKOTE AND ANTIEMETIC.
[2020-02-20] MEDS ORDERED: ondansetron/PF 4mg/2ml inj IV ONE (20:30)
[2020-02-20] MEDS ORDERED: divalproex sodium 500mg tablet.DR PO ONE (20:30)
--- NOTE | 2020-02-20 20:51 | NUR ---
med given 45 in ago, pt with 9 otu of 10apin to her head. so has had minimal relief. still nauseaus. just given zofran 4 mg iv. depakote ordered po, pt too nauseaus at this time to take the pil.
[2020-02-20] MEDS ORDERED: fentaNYL/PF 50MCG/1 ML 2ML syringe IV ONE (21:30)
[2020-02-20] MEDS ORDERED: valproate sod inj 500 MG in normal saline 100ml IV soln 95 ML IV ONE (21:30)
--- NOTE | 2020-02-20 21:31 | NUR ---
DR AMBROSE AT BEDSIDE FOR REEVAL. PT WITH MINIMAL CHANGES TO HER SYMPTOMS. VERBAL RECEIVED FOR FENTANYL IV AND DEPAKOTE IV.
[2020-02-20 21:53] VITALS: BP 100/75
== END 2020-02-20 22:49 | disposition home or self-care (01) ==
LOC: ER 19:00
DX: G43.909 Migraine, unspecified, not intractable, without status migrainosus (principal); R11.2 Nausea with vomiting, unspecified; J45.909 Unspecified asthma, uncomplicated; Z87.440 Personal history of urinary (tract) infections; Z86.14 Personal history of Methicillin resistant Staphylococcus aureus infection; Z90.710 Acquired absence of both cervix and uterus; Z98.890 Other specified postprocedural states; Z88.5 Allergy status to narcotic agent; Z88.0 Allergy status to penicillin; Z88.2 Allergy status to sulfonamides; Z88.8 Allergy status to other drugs, medicaments and biological substances; Z88.1 Allergy status to other antibiotic agents; Z91.040 Latex allergy status; Z79.899 Other long term (current) drug therapy
CPT/HCPCS: 96361; 96365; 96375; 99284; J1200; J1885; J2060; J2405; J3010; J7030

== ENCOUNTER 2020-03-15 07:30 | Day surgery (SDC) | payer MEDICAID ==
[2020-02-16 10:43] LABS: BASOPHILS # (AUTO) 0.1 X10'3 (0-0.2); BASOPHILS % (AUTO) 0.9 % (0-1); EOSINOPHILS # (AUTO) 0.4 X10'3 (0-0.9); EOSINOPHILS % (AUTO) 4.7 % (0-6); LYMPHOCYTES # (AUTO) 1.4 X10'3 (1.1-4.8); LYMPHOCYTES % (AUTO) 16.2 % (21-51); MEAN CORPUSCULAR HEMOGLOBIN 31.6 PG (27.0-31.0); MEAN CORPUSCULAR HGB CONC 33.2 g/dL (33.0-36.5); MEAN PLATELET VOLUME 6.9 FL (7.4-10.4); MONOCYTES # (AUTO) 0.4 X10'3 (0-0.9); NEUTROPHILS # (AUTO) 6.1 X10'3 (1.8-7.7); NEUTROPHILS % (AUTO) 73.2 % (42-75); PRE OP HEMATOCRIT 34.7 % (35.0-45.0); PRE OP HEMOGLOBIN 11.5 g/dL (12.0-16.0); PRE OP PLATELET COUNT 412 X10'3 (140-440); RED BLOOD COUNT 3.66 X10'6 (4.20-5.60); RED CELL DISTRIBUTION WIDTH 13.7 % (11.5-14.5)
[2020-02-16 10:58] LABS: ALBUMIN 3.5 G/DL (3.4-5.0); ALBUMIN/GLOBULIN RATIO 1.1 (1.1-1.5); ALKALINE PHOSPHATASE 62 IU/L (46-116); BLOOD UREA NITROGEN 10 MG/DL (7-18); BUN/CREATININE RATIO 14.3 (6.6-38.0); CALCIUM 8.7 MG/DL (8.5-10.1); CHLORIDE 108 MMOL/L (99-107); PRE OP ALT 12 U/L (30-65); PRE OP ANION GAP 3 (8-16); PRE OP AST 13 U/L (10-37); PRE OP BILIRUB, TOTAL 0.2 MG/DL (0.0-1.0); PRE OP GLUCOSE 82 MG/DL (70-104); PRE OP POTASSIUM 4.3 MMOL/L (3.4-5.1); PRE OP SODIUM 143 MMOL/L (135-145); TOTAL CARBON DIOXIDE 31.7 MMOL/L (24-32); TOTAL PROTEIN 6.7 G/DL (6.4-8.2); eGFR > 90 ML/MIN
[2020-03-15] VITALS (11 sets, daily range): BP systolic 94–113; BP diastolic 62–75
[~2020-03-15] VITALS: Ht 160 cm; Wt 53.0 kg
[~2020-03-15 07:30] MED LIST changes: +BUPIVAcaine/PF 2.5mg/ml (0.25%) 10ml vial ONE; +LIDOcaine 0.5% (5mg/ml) 50ml vial ONE; +VANCOMYCIN INJ 1000 MG in NORMAL SALINE 250ml IV.SOLN IV ONE; +albuterol 2.5 MG/3 ML nebule NEB ONE; +cefazolin/dext.iso 2gm/50ml 50 ML IV ONE; +famotidine 20mg tablet PO ONE; +ringers solution, lacted 1,000 ML IV SCH; +scopolamine 1.5mg patch.TD72 TD ONE
[2020-03-15] MEDS ORDERED: LIDOcaine 0.5% (5mg/ml) 50ml vial ONE (07:59)
[2020-03-15] MEDS ORDERED: ringers solution, lacted 1,000 ML IV SCH (08:08)
[2020-03-15] MEDS ORDERED: morphine 4 MG/ML inj SYRINge IV PRN (08:10)
[2020-03-15] MEDS ORDERED: ondansetron/PF 4mg/2ml inj IV PRN (08:10)
[2020-03-15] MEDS ORDERED: morphine 2 MG/ML inj. syringe IV PRN (08:10)
[2020-03-15] MEDS ORDERED: OXYC-145 PO (08:30)
[2020-03-15] MEDS ORDERED: ONDA8TAB6 PO (08:30)
[2020-03-15] MEDS ORDERED: scopolamine 1.5mg patch.TD72 TD ONE (08:50)
[2020-03-15 09:06] LABS: BASOPHILS # (AUTO) 0.1 X10'3 (0-0.2); BASOPHILS % (AUTO) 1.1 % (0-1); EOSINOPHILS # (AUTO) 0.3 X10'3 (0-0.9); EOSINOPHILS % (AUTO) 4.5 % (0-6); LYMPHOCYTES # (AUTO) 2.1 X10'3 (1.1-4.8); MEAN CORPUSCULAR HEMOGLOBIN 31.8 PG (27.0-31.0); MEAN CORPUSCULAR HGB CONC 33.7 g/dL (33.0-36.5); MEAN CORPUSCULAR VOLUME 94.5 FL (78-98); MEAN PLATELET VOLUME 6.8 FL (7.4-10.4); MONOCYTES # (AUTO) 0.4 X10'3 (0-0.9); MONOCYTES % (AUTO) 5.7 % (2-12); NEUTROPHILS # (AUTO) 3.5 X10'3 (1.8-7.7); NEUTROPHILS % (AUTO) 55.7 % (42-75); PRE OP HEMATOCRIT 36.5 % (35.0-45.0); PRE OP HEMOGLOBIN 12.3 g/dL (12.0-16.0); PRE OP PLATELET COUNT 370 X10'3 (140-440); RED BLOOD COUNT 3.87 X10'6 (4.20-5.60); RED CELL DISTRIBUTION WIDTH 13.1 % (11.5-14.5)
[2020-03-15 09:16] LABS: HCG SERUM QL NEGATIVE
[2020-03-15 09:21] LABS: ALBUMIN/GLOBULIN RATIO 1.3 (1.1-1.5); ALKALINE PHOSPHATASE 63 IU/L (46-116); BLOOD UREA NITROGEN 11 MG/DL (7-18); BUN/CREATININE RATIO 13.6 (6.6-38.0); CALCIUM 9.3 MG/DL (8.5-10.1); CHLORIDE 108 MMOL/L (99-107); CREATININE 0.81 MG/DL (0.40-0.90); PRE OP ALT 22 U/L (30-65); PRE OP ANION GAP 7 (8-16); PRE OP AST 15 U/L (10-37); PRE OP BILIRUB, TOTAL 0.3 MG/DL (0.0-1.0); PRE OP GLUCOSE 94 MG/DL (70-104); PRE OP POTASSIUM 3.6 MMOL/L (3.4-5.1); PRE OP SODIUM 144 MMOL/L (135-145); TOTAL CARBON DIOXIDE 29.4 MMOL/L (24-32); TOTAL PROTEIN 7.1 G/DL (6.4-8.2); eGFR 78 ML/MIN
[2020-03-15] MEDS ORDERED: MIDAZolam 5mg/5ml vial ONE (12:19)
[2020-03-15] MEDS ORDERED: fentaNYL/PF 50MCG/1 ML 2ML syringe ONE (12:19)
[2020-03-15] MEDS ORDERED: propofol inj 20 ML IV ONE (12:21)
--- NOTE | 2020-03-15 13:09 | NUR ---
Received from OR via [facility], accompanied by Anesthesiologist DR GOLDBERG and report given by Anesthesiologist. PT DROWSY, DENIES PAIN, RIGHT HAND/WRIST/FOREARM DRSG COVERED W/KATHLEEN WRAP CDI, FINGERS PWD, MILLINER HELPER 1-2 SECONDS. Addendum: 03/15/20 at 1531 by Janice Hernandez RN Amended: Links added.
[2020-03-15] MEDS ORDERED: acetaminophen 1,000mg/100ml IV 100 ML IV ONE (14:00)
--- NOTE | 2020-03-15 14:49 | NUR ---
PT LEHMAN IMPROVED, UP TO BATHROOM FOR VOID, IS ABLE TO AMBULATE, D/C INSTRUCTIONS GIVEN AND GONE OVER W/PT WHO VERBALIZED UNDERSTANDING, PT D/CD TO HOME VIA W/C TO PRIVATE VEHICLE W/O INCIDENT. Addendum: 03/15/20 at 1534 by Janice Hernandez RN Amended: Links added.
== END 2020-03-15 14:49 | disposition home or self-care (01) ==
LOC: PAS 07:30
PROVIDERS: ATTEND Orthopaedic Surgery Hand Surgery
DX: G56.01 Carpal tunnel syndrome, right upper limb (principal); M67.431 Ganglion, right wrist; G56.21 Lesion of ulnar nerve, right upper limb; G43.909 Migraine, unspecified, not intractable, without status migrainosus; F41.9 Anxiety disorder, unspecified; F12.90 Cannabis use, unspecified, uncomplicated; J45.909 Unspecified asthma, uncomplicated; F90.9 Attention-deficit hyperactivity disorder, unspecified type; F43.10 Post-traumatic stress disorder, unspecified; F32.89 Other specified depressive episodes; G89.29 Other chronic pain; Z88.8 Allergy status to other drugs, medicaments and biological substances; Z88.1 Allergy status to other antibiotic agents; Z88.2 Allergy status to sulfonamides; Z88.5 Allergy status to narcotic agent; Z88.0 Allergy status to penicillin; Z79.899 Other long term (current) drug therapy; Z11.59 Encounter for screening for other viral diseases; Z90.710 Acquired absence of both cervix and uterus; Z98.890 Other specified postprocedural states; Z86.14 Personal history of Methicillin resistant Staphylococcus aureus infection
CPT/HCPCS: 25111; 36415; 64718; 64719; 64721; 80053; 84703; 85025; J0131; J2001; J2250; J2704; J3010; J3370; J3490; J7120; U0003; A4215; A4618; A6449; A7000

== ENCOUNTER 2020-03-17 11:35 | Emergency (ER) | payer MEDICAID ==
[~2020-03-17] VITALS: Ht 160 cm; Wt 54.3 kg
[~2020-03-17 11:35] MED LIST changes: -BUPIVAcaine/PF 2.5mg/ml (0.25%) 10ml vial ONE; -LIDOcaine 0.5% (5mg/ml) 50ml vial ONE; +ONDA8TAB6 PO; +OXYC-145 PO; -VANCOMYCIN INJ 1000 MG in NORMAL SALINE 250ml IV.SOLN IV ONE; -albuterol 2.5 MG/3 ML nebule NEB ONE; -cefazolin/dext.iso 2gm/50ml 50 ML IV ONE; -famotidine 20mg tablet PO ONE; -ringers solution, lacted 1,000 ML IV SCH; -scopolamine 1.5mg patch.TD72 TD ONE
[2020-03-17] MEDS ORDERED: normal saline 1000ML IV soln IVB ONE (12:10)
[2020-03-17] MEDS ORDERED: valproate sod inj 500 MG in normal saline 100ml IV soln 95 ML IV ONE (12:10)
[2020-03-17] MEDS ORDERED: ketorolac tromethamine 15mg/ml inj. IV ONE (12:10)
[2020-03-17] MEDS ORDERED: fentaNYL/PF 50MCG/1 ML 2ML syringe IV ONE (12:10)
[2020-03-17] MEDS ORDERED: metoclopramide 5 mg/ml inj IV ONE (12:10)
[2020-03-17] MEDS ORDERED: diphenhydrAMINE 50 mg/ml inj IV ONE (12:10)
[2020-03-17 14:34] VITALS: BP 111/69
== END 2020-03-17 14:35 | disposition home or self-care (01) ==
LOC: ER 11:35
DX: G43.909 Migraine, unspecified, not intractable, without status migrainosus (principal); M79.641 Pain in right hand; R11.2 Nausea with vomiting, unspecified; H53.8 Other visual disturbances; J45.909 Unspecified asthma, uncomplicated; G89.29 Other chronic pain; Z87.440 Personal history of urinary (tract) infections; Z86.14 Personal history of Methicillin resistant Staphylococcus aureus infection; Z90.710 Acquired absence of both cervix and uterus; Z98.890 Other specified postprocedural states; Z88.5 Allergy status to narcotic agent; Z88.0 Allergy status to penicillin; Z88.2 Allergy status to sulfonamides; Z88.8 Allergy status to other drugs, medicaments and biological substances; Z88.1 Allergy status to other antibiotic agents; Z91.040 Latex allergy status; Z79.899 Other long term (current) drug therapy
CPT/HCPCS: 96361; 96365; 96375; 99284; J1200; J1885; J2765; J3010; J7030

== ENCOUNTER 2020-03-24 02:32 | Emergency (ER) | payer MEDICAID ==
[~2020-03-24] VITALS: Ht 160 cm; Wt 53.2 kg
[2020-03-24] MEDS ORDERED: dexamethasone sod phosphate 10mg/ml inj IV STA (02:43)
[2020-03-24] MEDS ORDERED: normal saline 1000ML IV soln IVB ONE (02:45)
[2020-03-24] MEDS ORDERED: ketorolac tromethamine 15mg/ml inj. IV ONE (02:45)
[2020-03-24] MEDS ORDERED: SUMAtriptan succ. 6 MG/0.5ml vial SQ ONE (02:45)
[2020-03-24] MEDS ORDERED: valproate sod inj 1,000 MG in normal saline 100ml IV soln 90 ML IV ONE (02:50)
[2020-03-24] MEDS ORDERED: fentaNYL/PF 50MCG/1 ML 2ML syringe IV ONE (02:50)
[2020-03-24] MEDS ORDERED: ondansetron/PF 4mg/2ml inj IV ONE (03:10)
[2020-03-24] MEDS ORDERED: SUMA50TA INJ (03:53)
[2020-03-24 04:38] VITALS: BP 119/83
--- NOTE | 2020-03-24 04:43 | NUR ---
PT STATES THAT RIGHT SIDE FEELS BETTER, BUT RIGHT SIDE STILL HAS PAIN 06/06
[2020-03-24] MEDS ORDERED: diazepam inj 5 MG/ML inj. IV ONE (04:45)
[2020-03-24] MEDS ORDERED: diphenhydrAMINE 50 mg/ml inj IV ONE (04:45)
== END 2020-03-24 05:42 | disposition home or self-care (01) ==
LOC: ER 02:32
DX: G43.909 Migraine, unspecified, not intractable, without status migrainosus (principal); R11.2 Nausea with vomiting, unspecified; H53.149 Visual discomfort, unspecified; J45.909 Unspecified asthma, uncomplicated; G89.29 Other chronic pain; Z90.710 Acquired absence of both cervix and uterus; Z98.890 Other specified postprocedural states; Z86.14 Personal history of Methicillin resistant Staphylococcus aureus infection; Z88.1 Allergy status to other antibiotic agents; Z91.040 Latex allergy status; Z88.0 Allergy status to penicillin; Z88.5 Allergy status to narcotic agent; Z88.8 Allergy status to other drugs, medicaments and biological substances; Z79.899 Other long term (current) drug therapy
CPT/HCPCS: 96365; 96372; 96375; 99284; J1100; J1200; J1885; J2405; J3010; J3360; J7030; J3030

== ENCOUNTER 2020-05-14 14:31 | Emergency (ER) | payer MEDICAID ==
[~2020-05-14] VITALS: Ht 167.6 cm; Wt 60.0 kg
[2020-05-14] MEDS ORDERED: dexamethasone sod phosphate 10mg/ml inj IV STA (15:28)
[2020-05-14] MEDS ORDERED: ondansetron/PF 4mg/2ml inj IV ONE (15:30)
[2020-05-14] MEDS ORDERED: valproate sod inj 1,000 MG in normal saline 100ml IV soln 90 ML IV ONE (15:30)
[2020-05-14] MEDS ORDERED: ketorolac tromethamine 15mg/ml inj. IV ONE (15:30)
[2020-05-14] MEDS ORDERED: diphenhydrAMINE 50 mg/ml inj IV ONE (15:30)
[2020-05-14 17:21] VITALS: BP 136/76
== END 2020-05-14 17:23 | disposition home or self-care (01) ==
LOC: ER 14:31
DX: G43.909 Migraine, unspecified, not intractable, without status migrainosus (principal); R11.10 Vomiting, unspecified; M25.531 Pain in right wrist; J45.909 Unspecified asthma, uncomplicated; G89.29 Other chronic pain; Z86.14 Personal history of Methicillin resistant Staphylococcus aureus infection; Z98.890 Other specified postprocedural states; Z90.710 Acquired absence of both cervix and uterus; Z88.1 Allergy status to other antibiotic agents; Z91.040 Latex allergy status; Z88.2 Allergy status to sulfonamides; Z88.8 Allergy status to other drugs, medicaments and biological substances; Z79.899 Other long term (current) drug therapy
CPT/HCPCS: 96365; 96375; 99284; J1100; J1200; J1885; J2405

== ENCOUNTER 2020-08-03 21:18 | Emergency (ER) | payer MEDICAID ==
[~2020-08-03] VITALS: Ht 160 cm; Wt 52.3 kg
[2020-08-03 21:45] LABS: CLARITY,URINE CLEAR (Clear); COLOR,URINE YELLOW (Yellow); GLUCOSE, URINE NEGATIVE (Neg); KETONES,URINE NEGATIVE (Neg); LEUKOCYTE ESTERASE ,URINE NEGATIVE (Neg); NITRITES, URINE NEGATIVE (Neg); OCCULT BLOOD,URINE NEGATIVE (Neg); PH,URINE 6.5 (4.8-8.0); PROTEIN,URINE NEGATIVE (Neg)
[2020-08-03 21:54] LABS: UA COLLECTION TYPE CLN CATCH MIDSTREAM
[2020-08-03] MEDS ORDERED: ketorolac tromethamine 15mg/ml inj. IM ONE (22:45)
[2020-08-03 22:58] LABS: BASOPHILS # (AUTO) 0.1 X10'3 (0-0.2); EOSINOPHILS # (AUTO) 0.2 X10'3 (0-0.9); EOSINOPHILS % (AUTO) 2.5 % (0-6); HEMATOCRIT 37.1 % (35.0-45.0); HEMOGLOBIN 12.5 g/dl (12.0-16.0); LYMPHOCYTES # (AUTO) 2.4 X10'3 (1.1-4.8); LYMPHOCYTES % (AUTO) 29.9 % (21-51); MEAN CORPUSCULAR HEMOGLOBIN 32.1 PG (27.0-31.0); MEAN CORPUSCULAR HGB CONC 33.6 g/dL (33.0-36.5); MEAN CORPUSCULAR VOLUME 95.6 FL (78-98); MEAN PLATELET VOLUME 7.1 FL (7.4-10.4); MONOCYTES # (AUTO) 0.5 X10'3 (0-0.9); MONOCYTES % (AUTO) 5.7 % (2-12); NEUTROPHILS # (AUTO) 4.9 X10'3 (1.8-7.7); NEUTROPHILS % (AUTO) 60.9 % (42-75); PLATELET COUNT 383 X10'3 (140-440); RED BLOOD COUNT 3.88 X10'6 (4.20-5.60); RED CELL DISTRIBUTION WIDTH 12.9 % (11.5-14.5); WHITE BLOOD COUNT 8.1 X10'3 (4.5-11.0)
[2020-08-03 23:02] LABS: ANION GAP 7 (8-16); BLOOD UREA NITROGEN 13 MG/DL (7-18); BUN/CREATININE RATIO 12.3 (6.6-38.0); CALCIUM 9.2 MG/DL (8.5-10.1); CHLORIDE 103 MMOL/L (99-107); CREATININE 1.06 MG/DL (0.40-0.90); GLUCOSE 88 MG/DL (70-104); POTASSIUM 3.4 MMOL/L (3.5-5.1); SODIUM 139 MMOL/L (135-145); TOTAL CARBON DIOXIDE 28.7 MMOL/L (24-32); eGFR 57 ML/MIN
[2020-08-03 23:23] VITALS: BP 116/96
[2020-08-04 05:00] LABS: URINE HCG NEGATIVE (NEG)
== END 2020-08-04 01:35 | disposition home or self-care (01) ==
LOC: ER 21:19
DX: R10.84 Generalized abdominal pain (principal); R07.89 Other chest pain; R79.89 Other specified abnormal findings of blood chemistry; G43.909 Migraine, unspecified, not intractable, without status migrainosus; J45.909 Unspecified asthma, uncomplicated; N18.9 Chronic kidney disease, unspecified; G89.29 Other chronic pain; F32.9 Major depressive disorder, single episode, unspecified; Z87.440 Personal history of urinary (tract) infections; Z86.14 Personal history of Methicillin resistant Staphylococcus aureus infection; Z90.710 Acquired absence of both cervix and uterus; Z98.890 Other specified postprocedural states; Z88.1 Allergy status to other antibiotic agents; Z88.0 Allergy status to penicillin; Z88.2 Allergy status to sulfonamides; Z91.040 Latex allergy status; Z88.8 Allergy status to other drugs, medicaments and biological substances; Z79.899 Other long term (current) drug therapy
CPT/HCPCS: 36415; 80048; 81003; 81025; 85025; 93005; 96372; 99284; J1885

== ENCOUNTER 2021-01-18 19:23 | Emergency (ER) | payer MEDICAID ==
[~2021-01-18] VITALS: Ht 160 cm; Wt 56.3 kg
[~2021-01-18 19:23] MED LIST changes: +DIAZ5TAB22 PO; -MECL-184 PO; +MECL-231 PO; +TIZA-189 PO; -TIZA2TAB7 PO; -VAL5T PO
[2021-01-18] MEDS ORDERED: albuterol 2.5 MG/3 ML nebule NEB ONE (20:30)
--- NOTE | 2021-01-18 20:46 | NUR ---
PATIENT HOOKED UP TO BP & PULSE OX - PATIENT ALLERGIC TO EKG STICKERS
[2021-01-18] MEDS ORDERED: PRED20TA PO (21:16)
[2021-01-18] MEDS ORDERED: LEVO750T46 PO (21:29)
[2021-01-18 22:17] VITALS: BP 121/82
== END 2021-01-18 22:18 | disposition home or self-care (01) ==
LOC: ER 19:24
DX: J45.901 Unspecified asthma with (acute) exacerbation (principal); J01.90 Acute sinusitis, unspecified; G43.909 Migraine, unspecified, not intractable, without status migrainosus; G89.29 Other chronic pain; F32.9 Major depressive disorder, single episode, unspecified; N18.9 Chronic kidney disease, unspecified; Z87.442 Personal history of urinary calculi; Z90.710 Acquired absence of both cervix and uterus; Z98.890 Other specified postprocedural states; Z88.1 Allergy status to other antibiotic agents; Z91.040 Latex allergy status; Z88.0 Allergy status to penicillin; Z88.2 Allergy status to sulfonamides; Z88.5 Allergy status to narcotic agent; Z88.8 Allergy status to other drugs, medicaments and biological substances; Z79.899 Other long term (current) drug therapy
CPT/HCPCS: 93005; 94640; 94760; 99283

== ENCOUNTER 2021-02-13 12:06 | Emergency (ER) | payer MEDICAID ==
[~2021-02-13] VITALS: Ht 160 cm; Wt 55.1 kg
[2021-02-13] MEDS ORDERED: ondansetron/PF 4mg/2ml inj IV ONE (13:55)
[2021-02-13] MEDS: LIDOcaine 4% (40 mg/ml) topical solution 50ml TP ONE (13:55)
[2021-02-13] MEDS ORDERED: ketorolac tromethamine 15mg/ml inj. IV ONE (13:55)
[2021-02-13] MEDS ORDERED: dexamethasone sod phosphate 10mg/ml inj IV STA (13:55)
[2021-02-13] MEDS ORDERED: normal saline 1000ML IV soln IVB ONE (13:55)
[2021-02-13] MEDS ORDERED: LORazepam 2 mg/ml vial IV ONE (13:55)
--- NOTE | 2021-02-13 15:12 | NUR ---
report given by darren montgomery, assumed care. pt resting in bed denies needs
[2021-02-13] MEDS ORDERED: morphine 4 MG/ML inj SYRINge IV ONE ×2 (15:15→16:05)
[2021-02-13] MEDS ORDERED: diphenhydrAMINE 50 mg/ml inj IV ONE (15:15)
[2021-02-13 15:23] VITALS: BP 108/68
[2021-02-13] MEDS ORDERED: metoclopramide 5 mg/ml inj IV ONE (16:05)
[2021-02-13] MEDS ORDERED: LIDOcaine 4% (40 mg/ml) topical solution 50ml TP ONE (16:05)
== END 2021-02-13 16:50 | disposition home or self-care (01) ==
LOC: ER 12:07
DX: G43.909 Migraine, unspecified, not intractable, without status migrainosus (principal); J45.909 Unspecified asthma, uncomplicated; G89.29 Other chronic pain; F32.9 Major depressive disorder, single episode, unspecified; N18.9 Chronic kidney disease, unspecified; Z90.710 Acquired absence of both cervix and uterus; Z98.890 Other specified postprocedural states; Z88.1 Allergy status to other antibiotic agents; Z91.040 Latex allergy status; Z88.0 Allergy status to penicillin; Z79.899 Other long term (current) drug therapy
CPT/HCPCS: 96361; 96374; 96375; 96376; 99284; J1100; J1200; J1885; J2060; J2270; J2405; J2765; J7030

== ENCOUNTER 2021-03-22 15:53 | Emergency (ER) | payer MEDICAID ==
[~2021-03-22] VITALS: Ht 160 cm; Wt 55.9 kg
[2021-03-22] MEDS ORDERED: ondansetron/PF 4mg/2ml inj IV ONE ×2 (17:40→19:05)
[2021-03-22] MEDS ORDERED: normal saline 1000ML IV soln IVB ONE (17:40)
[2021-03-22] MEDS ORDERED: ketorolac trometh. 30mg/ml inj. IV ONE (17:40)
[2021-03-22] MEDS ORDERED: dexamethasone sod phosphate 10mg/ml inj IV STA (18:56)
[2021-03-22] MEDS ORDERED: morphine 4 MG/ML inj SYRINge IV ONE (19:00)
[2021-03-22 20:39] VITALS: BP 120/83
== END 2021-03-22 20:41 | disposition home or self-care (01) ==
LOC: ER 15:54
DX: G43.909 Migraine, unspecified, not intractable, without status migrainosus (principal); J45.909 Unspecified asthma, uncomplicated; R11.0 Nausea; G89.29 Other chronic pain; N18.9 Chronic kidney disease, unspecified; F32.9 Major depressive disorder, single episode, unspecified; Z86.14 Personal history of Methicillin resistant Staphylococcus aureus infection; Z90.710 Acquired absence of both cervix and uterus; Z98.890 Other specified postprocedural states; Z88.1 Allergy status to other antibiotic agents; Z88.2 Allergy status to sulfonamides; Z88.0 Allergy status to penicillin; Z88.5 Allergy status to narcotic agent; Z91.040 Latex allergy status; Z79.899 Other long term (current) drug therapy
CPT/HCPCS: 96374; 96375; 96376; 99284; J1100; J1885; J2270; J2405; J7030

== ENCOUNTER 2021-06-02 18:10 | Emergency (ER) | payer MEDICAID ==
[~2021-06-02] VITALS: Ht 160 cm; Wt 54.5 kg
[2021-06-02 18:32] VITALS: BP 116/72
[2021-06-02 19:05] LABS: CLARITY,URINE CLEAR (Clear); COLOR,URINE YELLOW (Yellow); GLUCOSE, URINE NEGATIVE (Neg); KETONES,URINE NEGATIVE (Neg); LEUKOCYTE ESTERASE ,URINE NEGATIVE (Neg); NITRITES, URINE NEGATIVE (Neg); OCCULT BLOOD,URINE NEGATIVE (Neg); PH,URINE 5.5 (4.8-8.0); PROTEIN,URINE NEGATIVE (Neg)
[2021-06-02 19:07] LABS: UA COLLECTION TYPE CLN CATCH MIDSTREAM
== END 2021-06-02 21:00 | disposition left against medical advice (07) ==
LOC: ER 18:13
DX: G43.909 Migraine, unspecified, not intractable, without status migrainosus (principal); Z53.21 Procedure and treatment not carried out due to patient leaving prior to being seen by health care provider
CPT/HCPCS: 81003

== ENCOUNTER 2021-09-24 19:07 | Emergency (ER) | payer MEDICAID ==
[~2021-09-24] VITALS: Ht 160 cm; Wt 58.2 kg
[~2021-09-24 19:07] MED LIST changes: -CETI10TA18 PO; +CETI10TA19 PO
[2021-09-24 19:47] LABS: CLARITY,URINE SLIGHTLY CLOUDY (Clear); COLOR,URINE YELLOW (Yellow); GLUCOSE, URINE NEGATIVE (Neg); KETONES,URINE NEGATIVE (Neg); LEUKOCYTE ESTERASE ,URINE NEGATIVE (Neg); NITRITES, URINE NEGATIVE (Neg); OCCULT BLOOD,URINE NEGATIVE (Neg); PH,URINE 5.5 (4.8-8.0); PROTEIN,URINE NEGATIVE (Neg); UROBILINOGEN,URINE 0.2 E.U/dL (0.2-1.0)
[2021-09-24 19:48] LABS: URINE HCG NEGATIVE (NEG)
[2021-09-24 19:56] LABS: UA COLLECTION TYPE CLN CATCH MIDSTREAM
[2021-09-24 20:02] LABS: BACTERIA,URINE NONE SEEN /HPF (Neg); MUCUS STRANDS FEW /LPF (Neg); RBC,URINE 0-2 /HPF (0-2); SQUAMOUS EPITHELIAL CELL,UR MODERATE /LPF (FEW); WBC,URINE 0-4 /HPF (0-4)
[2021-09-24] MEDS ORDERED: SUMA50TA INJ (20:55)
[2021-09-24] MEDS ORDERED: KETO30VI IM (20:56)
[2021-09-24] MEDS ORDERED: LOP12.5T PO (20:58)
[2021-09-24] MEDS ORDERED: CefTRIAXone 1000mg IM Kit (w/lidocaine diluent) IM STA (21:06)
[2021-09-24] MEDS ORDERED: diphenhydrAMINE 25mg capsule PO ONE (21:15)
[2021-09-24] MEDS ORDERED: DOXYCYCLINE 100MG CAPSULE PO ONE (21:19)
[2021-09-24] MEDS ORDERED: METR-159 PO (22:01)
[2021-09-24] MEDS ORDERED: DIPH25CA83 PO (22:01)
[2021-09-24] MEDS ORDERED: DOXY100C76 PO (22:01)
--- NOTE | 2021-09-24 22:28 | NUR ---
monitored pt for s/s of allergic rxn to doxy. no s/s noted. collected 2nd urine sample for std check and sent to lab.
[2021-09-24 22:30] VITALS: BP 124/74
== END 2021-09-24 22:31 | disposition home or self-care (01) ==
LOC: ER 19:08
DX: Z20.2 Contact with and (suspected) exposure to infections with a predominantly sexual mode of transmission (principal); N89.8 Other specified noninflammatory disorders of vagina; G43.909 Migraine, unspecified, not intractable, without status migrainosus; J45.909 Unspecified asthma, uncomplicated; N18.9 Chronic kidney disease, unspecified; G89.29 Other chronic pain; F32.9 Major depressive disorder, single episode, unspecified; Z87.440 Personal history of urinary (tract) infections; Z86.14 Personal history of Methicillin resistant Staphylococcus aureus infection; Z90.710 Acquired absence of both cervix and uterus; Z98.890 Other specified postprocedural states; Z91.040 Latex allergy status; Z88.2 Allergy status to sulfonamides; Z88.1 Allergy status to other antibiotic agents; Z88.8 Allergy status to other drugs, medicaments and biological substances; Z88.5 Allergy status to narcotic agent; Z79.899 Other long term (current) drug therapy
CPT/HCPCS: 36415; 81001; 81025; 86592; 87491; 87591; 99283; Q0163

== ENCOUNTER 2021-10-25 13:35 | Emergency (ER) | payer MEDICAID ==
[~2021-10-25] VITALS: Ht 160 cm; Wt 53.0 kg
[~2021-10-25 13:35] MED LIST changes: -AMPH10TA PO; -DEXT30TA10 PO; +DIPH25CA83 PO; +KETO30VI IM; +LOP12.5T PO; -MELO-100 PO; -ONDA8TAB6 PO; -OXYC-145 PO; -TIZA-189 PO
[2021-10-25] MEDS ORDERED: dexamethasone sod phosphate 10mg/ml inj IV STA (14:02)
[2021-10-25] MEDS ORDERED: ketorolac trometh. 30mg/ml inj. IV ONE (14:05)
[2021-10-25] MEDS ORDERED: normal saline 1000ML IV soln IVB ONE (14:05)
[2021-10-25] MEDS ORDERED: metoclopramide 5 mg/ml inj IV ONE (14:05)
[2021-10-25] MEDS ORDERED: LORazepam 2 mg/ml vial IV ONE (14:05)
[2021-10-25] MEDS ORDERED: diphenhydrAMINE 50 mg/ml inj IV ONE (14:40)
[2021-10-25 14:42] VITALS: BP 101/63
== END 2021-10-25 15:51 | disposition home or self-care (01) ==
LOC: ER 13:35
DX: G43.909 Migraine, unspecified, not intractable, without status migrainosus (principal); J45.909 Unspecified asthma, uncomplicated; N18.9 Chronic kidney disease, unspecified; F32.9 Major depressive disorder, single episode, unspecified; Z91.040 Latex allergy status; Z88.0 Allergy status to penicillin; Z79.899 Other long term (current) drug therapy; Z88.1 Allergy status to other antibiotic agents; Z88.5 Allergy status to narcotic agent; Z88.2 Allergy status to sulfonamides
CPT/HCPCS: 96374; 96375; 99284; J1100; J1200; J1885; J2060; J2765; J7030

== ENCOUNTER 2022-03-16 19:17 | Emergency (ER) | payer MEDICAID ==
[~2022-03-16] VITALS: Ht 160 cm; Wt 61.8 kg
[2022-03-17] MEDS ORDERED: diazepam inj 5 MG/ML inj. IV ONE (00:50)
[2022-03-17] MEDS ORDERED: metoclopramide 5 mg/ml inj IV ONE (00:50)
[2022-03-17] MEDS ORDERED: ketorolac trometh. 30mg/ml inj. IV ONE (00:50)
[2022-03-17 03:04] VITALS: BP 102/60
== END 2022-03-17 03:05 | disposition home or self-care (01) ==
LOC: ER 19:22
DX: G43.909 Migraine, unspecified, not intractable, without status migrainosus (principal); R42 Dizziness and giddiness; J45.909 Unspecified asthma, uncomplicated; G89.29 Other chronic pain; N18.9 Chronic kidney disease, unspecified; Z87.440 Personal history of urinary (tract) infections; Z86.14 Personal history of Methicillin resistant Staphylococcus aureus infection; Z90.710 Acquired absence of both cervix and uterus; Z79.899 Other long term (current) drug therapy; Z88.0 Allergy status to penicillin; Z88.1 Allergy status to other antibiotic agents; Z88.2 Allergy status to sulfonamides; Z91.040 Latex allergy status; Z88.8 Allergy status to other drugs, medicaments and biological substances
CPT/HCPCS: 96374; 96375; 99284; J1885; J2765; J3360

== ENCOUNTER 2023-03-26 13:52 | Emergency (ER) | payer MEDICAID ==
[~2023-03-26] VITALS: Ht 157.5 cm; Wt 58.2 kg
[~2023-03-26 13:52] MED LIST changes: +RIZA-5 PO; -RIZA10TA27 PO
[2023-03-26 14:55] LABS: BASOPHILS % (AUTO) 0.4 % (0-1); EOSINOPHILS # (AUTO) 0.2 X10'3 (0-0.9); HEMATOCRIT 36.2 % (35.0-45.0); HEMOGLOBIN 12.1 g/dl (12.0-16.0); LYMPHOCYTES # (AUTO) 1.7 X10'3 (1.1-4.8); LYMPHOCYTES % (AUTO) 16.5 % (21-51); MEAN CORPUSCULAR HGB CONC 33.4 g/dL (33.0-36.5); MEAN CORPUSCULAR VOLUME 92.9 FL (78-98); MEAN PLATELET VOLUME 6.8 FL (7.4-10.4); MONOCYTES # (AUTO) 0.4 X10'3 (0-0.9); MONOCYTES % (AUTO) 4.3 % (2-12); NEUTROPHILS # (AUTO) 7.9 X10'3 (1.8-7.7); NEUTROPHILS % (AUTO) 76.8 % (42-75); PLATELET COUNT 366 X10'3 (140-440); RED CELL DISTRIBUTION WIDTH 12.9 % (11.5-14.5); WHITE BLOOD COUNT 10.3 X10'3 (4.5-11.0)
[2023-03-26 15:02] LABS: URINE HCG NEGATIVE (NEG)
[2023-03-26 15:05] VITALS: BP 112/75
[2023-03-26 15:08] LABS: CLARITY,URINE CLOUDY (Clear); COLOR,URINE ORANGE (Yellow); UA COLLECTION TYPE CLN CATCH MIDSTREAM
[2023-03-26 15:10] LABS: BACTERIA,URINE 4+ /HPF (Neg); MUCUS STRANDS NONE SEEN /LPF (Neg); RBC,URINE 0-2 /HPF (0-2); SQUAMOUS EPITHELIAL CELL,UR FEW /LPF (FEW); WBC CLUMPS,URINE FEW /HPF (NEGATIVE); WBC,URINE 50-100 /HPF (0-4)
[2023-03-26 15:13] LABS: ALANINE AMINOTRANSFERASE 19 U/L (12-78); ALBUMIN 3.8 G/DL (3.4-5.0); ALBUMIN/GLOBULIN RATIO 1.1 (1.1-1.5); ALKALINE PHOSPHATASE 79 IU/L (46-116); ANION GAP 7 (8-16); ASPARTATE AMINO TRANSFERASE 14 U/L (10-37); BILIRUBIN,TOTAL 0.5 MG/DL (0.1-1.0); BLOOD UREA NITROGEN 11 MG/DL (7-18); BUN/CREATININE RATIO 11.1 (10.0-20.0); CALCIUM 9.1 MG/DL (8.5-10.1); CHLORIDE 104 MMOL/L (99-107); CREATININE 0.99 MG/DL (0.40-0.90); GLUCOSE 90 MG/DL (70-104); LIPASE 197 U/L (73-393); POTASSIUM 4.1 MMOL/L (3.5-5.1); SODIUM 141 MMOL/L (135-145); TOTAL CARBON DIOXIDE 29.7 MMOL/L (24-32); TOTAL PROTEIN 7.3 G/DL (6.4-8.2); eGFR 61 ML/MIN
[2023-03-26] MEDS ORDERED: SUMAtriptan succ. 6 MG/0.5ml vial SQ ONE (15:15)
[2023-03-26] MEDS ORDERED: normal saline 1000ml 1,000 ML IV ONE (15:15)
[2023-03-26] MEDS ORDERED: ketorolac tromethamine 15mg/ml inj. IV ONE (15:15)
[2023-03-26] MEDS ORDERED: ondansetron/PF 4mg/2ml inj IV ONE (15:15)
[2023-03-26] MEDS ORDERED: NITR100C6 PO (17:08)
== END 2023-03-26 17:15 | disposition home or self-care (01) ==
LOC: ER 13:54
DX: G43.909 Migraine, unspecified, not intractable, without status migrainosus (principal); N39.0 Urinary tract infection, site not specified; J45.909 Unspecified asthma, uncomplicated; N18.9 Chronic kidney disease, unspecified; Z91.040 Latex allergy status; Z88.0 Allergy status to penicillin; Z88.1 Allergy status to other antibiotic agents; Z88.2 Allergy status to sulfonamides; Z88.5 Allergy status to narcotic agent; Z87.891 Personal history of nicotine dependence
CPT/HCPCS: 36415; 80053; 81001; 81025; 83690; 85025; 87088; 87186; 96361; 96372; 96374; 96375; 99284; J1885; J2405; J3030; J7030; 87077